=== PATIENT | female | born 1970 | race Caucasian/White ===

== ENCOUNTER 2018-03-14 05:20 | Emergency (ER) | payer SELFPAY ==
[~2018-03-14] VITALS: Ht 160 cm; Wt 70.3 kg
--- NOTE | ~2018-03-14 | EKG ---
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
[2018-03-14 05:50] LABS: HEMOGLOBIN 12.9 g/dl (12.0-16.0); MEAN CELL VOLUME 79.3 fl (81.0-99.0); MEAN CORPUSCULAR HGB CONC 31.5 g/dl (33.0-37.0); MEAN PLATELET VOLUME 10.5 fl (9.6-12.3); PLATELET COUNT AUTOMATED 237 10*3/uL (130-400); RED BLOOD COUNT 5.17 10*6/uL (4.10-5.10); RED CELL DISTRI WIDTH 15.8 % (0-14.5)
[2018-03-14 06:04] LABS: ALBUMIN 3.7 gm/dl (3.1-4.5); ALKALINE PHOSPHATASE 288 U/L (45-117); BUN 13 mg/dl (7-24); CHLORIDE 107 mmol/L (98-107); CREATININE 1.32 mg/dL (0.55-1.02); POTASSIUM 4.3 mmol/L (3.5-5.1); SGOT/AST 370 IU/L (3-35); SGPT/ALT 488 U/L (12-78); SODIUM 139 mmol/L (136-145); TOTAL PROTEIN 7.9 gm/dL (6.4-8.2)
[2018-03-14 06:07] LABS: LIPASE 15491 U/L (73-393); TROPONIN I < 0.015 ng/ml (<0.045)
[2018-03-14 06:10] LABS: TOTAL CELLS COUNTED 100 #CELLS
[2018-03-14 06:11] LABS: MICROCYTOSIS SLIGHT; PLATELET SUFFICIENCY NORMAL (NORMAL)
[2018-03-14 09:26] LABS: BILIRUBIN 1+ (NEGATIVE); BLOOD NEGATIVE (NEGATIVE); CLARITY CLEAR (CLEAR); COLOR YELLOW (YELLOW); GLUCOSE NEGATIVE (NEGATIVE); KETONE NEGATIVE (NEGATIVE); LEUKO ESTERASE NEGATIVE (NEGATIVE); NITRITE NEGATIVE (NEGATIVE); PH 5.5 (5.0-9.0)
[2018-03-14 09:39] LABS: BACTERIA 1+
[2018-03-14 09:40] LABS: MUCOUS TRACE; WBC 21-30 wbc/hpf (0-5)
== END 2018-03-14 10:50 | disposition short-term general hospital (02) ==
LOC: ED 05:20
PROVIDERS: Emergency Medicine Emergency Medical Services
DX: K80.20 Calculus of gallbladder without cholecystitis without obstruction (principal); K85.90 Acute pancreatitis without necrosis or infection, unspecified; E11.9 Type 2 diabetes mellitus without complications; E66.01 Morbid (severe) obesity due to excess calories; Z79.4 Long term (current) use of insulin; Z90.49 Acquired absence of other specified parts of digestive tract; Z90.710 Acquired absence of both cervix and uterus

== ENCOUNTER → 2018-10-08 | Outpatient (CLI) | payer OTHER | END | disposition home or self-care (01) | LOC: US 10-07 10:30 | DX: R94.5 Abnormal results of liver function studies (principal); Z90.710 Acquired absence of both cervix and uterus ==

== ENCOUNTER 2018-10-20 20:44 | Emergency (ER) | payer OTHER ==
[~2018-10-20] VITALS: Ht 160 cm; Wt 73.0 kg
== END 2018-10-20 23:32 | disposition home or self-care (01) ==
LOC: ED 20:44
DX: G43.909 Migraine, unspecified, not intractable, without status migrainosus (principal); R07.9 Chest pain, unspecified

== ENCOUNTER → 2019-01-05 | Outpatient (CLI) | payer OTHER | END | disposition home or self-care (01) | LOC: MAMMO 16:46 | DX: Z12.31 Encounter for screening mammogram for malignant neoplasm of breast (principal) ==

== ENCOUNTER 2019-02-04 20:37 | Emergency (ER) | payer OTHER ==
[~2019-02-04] VITALS: Ht 160 cm; Wt 70.3 kg
== END 2019-02-04 23:55 | disposition home or self-care (01) ==
LOC: ED 20:37
DX: G43.909 Migraine, unspecified, not intractable, without status migrainosus (principal)